=== PATIENT | female | born 1985 | race Two or more races ===

== ENCOUNTER 2017-04-04 05:30 | Emergency (ER) | payer SELFPAY ==
[2017-04-04] MEDS ORDERED: BUPIVACAINE HCL 0.5%-EPI 1:200000 INJ/PF 30 ML VIAL INJ ONE (08:15)
[2017-04-04] MEDS ORDERED: PENICILLIN V POTASSIUM 500 MG TABLET PO ONE (08:16)
--- NOTE | 2017-04-04 08:33 | ER Document Report ---
ED Oral Problem - General Chief Complaint: Toothache Stated Complaint: TOOTHACHE Time Seen by Provider: 04/04/17 07:26 Mode of Arrival: Ambulatory Information source: Patient Notes: Patient is a 31-year-old female who presents to the ER today for right upper tooth pain that began while eating last night. Patient states that she could not sleep last night due to the pain. She states she does have a dentist to follow-up with, however does not have insurance. TRAVEL OUTSIDE OF THE [place] IN LAST 30 DAYS: No - Related Data Allergies/Adverse Reactions: No Known Allergies Allergy (Verified 08/28/15 07:56) Past Medical History - Social History Smoking Status: Current Every Day Smoker Chew tobacco use (# tins/day): No Frequency of alcohol use: None Drug Abuse: None Family History: Reviewed & Not Pertinent Patient has suicidal ideation: No Patient has homicidal ideation: No - Past Medical History Cardiac Medical History: Denies: Hx Coronary Artery Disease, Hx Heart Attack, Hx Hypertension Pulmonary Medical History: Denies: Hx Asthma, Hx Bronchitis, Hx COPD, Hx Pneumonia Neurological Medical History: Denies: Hx Cerebrovascular Accident, Hx Seizures Renal/ Medical History: Denies: Hx Peritoneal Dialysis Musculoskeltal Medical History: Denies Hx Arthritis Past Surgical History: Reports: Hx Tubal Ligation - Immunizations Hx Diphtheria, Pertussis, Tetanus Vaccination: Yes Physical Exam - Vital signs Vitals: Temp Pulse Resp BP Pulse Ox 98.2 F 72 17 109/57 L 100 04/04/17 05:46 04/04/17 05:46 04/04/17 05:46 04/04/17 05:46 04/04/17 05:46 Course - Vital Signs Vital signs: Temp Pulse Resp BP Pulse Ox 98.2 F 60 16 98/47 L 99 04/04/17 05:46 04/04/17 09:20 04/04/17 09:20 04/04/17 09:20 04/04/17 09:20 Procedures - Additional Procedures dental block Time performed: 08:50 - bupivicaine and epi local block, pt tolerated well Discharge - Discharge Clinical Impression: Toothache Condition: Stable Disposition: HOME, SELF-CARE Instructions: Penicillin V K ([facility]) Additional Instructions: Return immediately for any new or worsening symptoms. Follow up with primary care provider, call tomorrow to make followup appointment. Prescriptions: Penicillin V Potassium [Penicillin Vk 500 mg Tablet] 500 mg PO BID #20 tablet
[2017-04-04 09:48] VITALS: BP 98/47
== END 2017-04-04 09:20 | disposition home or self-care (01) ==
LOC: ER 05:30
PROC: 3E0T3BZ Introduction of Anesthetic Agent into Peripheral Nerves and Plexi, Percutaneous Approach (ICD-10-PCS; principal; 2017-04-04)
DX: K08.89 Other specified disorders of teeth and supporting structures (principal); F17.200 Nicotine dependence, unspecified, uncomplicated
CPT/HCPCS: 99282; 64400; J3490

== ENCOUNTER 2018-03-27 09:37 | Emergency (ER) | payer SELFPAY ==
[2018-03-27 09:44] VITALS: BP 119/58
--- NOTE | 2018-03-27 09:59 | ER Document Report ---
ED General - General Chief Complaint: Abnormal Lab Results Stated Complaint: ABNORMAL LABS Time Seen by Provider: 03/27/18 09:49 Notes: 32-year-old female here with requests for outpatient blood work. 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 She went to her primary doctor and her protein was found to be normal. 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 Her only symptom is that she has lost a few pounds over the course of 2 years, ever since she gave to her child. No other symptoms. TRAVEL OUTSIDE OF THE [place] IN LAST 30 DAYS: No - Related Data Allergies/Adverse Reactions: No Known Allergies Allergy (Verified 08/28/15 07:56) Past Medical History - Social History Smoking Status: Current Every Day Smoker Chew tobacco use (# tins/day): No Frequency of alcohol use: None Drug Abuse: None Family History: Reviewed & Not Pertinent Patient has suicidal ideation: No Patient has homicidal ideation: No - Past Medical History Cardiac Medical History: Denies: Hx Coronary Artery Disease, Hx Heart Attack, Hx Hypertension Pulmonary Medical History: Denies: Hx Asthma, Hx Bronchitis, Hx COPD, Hx Pneumonia Neurological Medical History: Denies: Hx Cerebrovascular Accident, Hx Seizures Renal/ Medical History: Denies: Hx Peritoneal Dialysis Musculoskeletal Medical History: Denies Hx Arthritis Past Surgical History: Reports: Hx Tubal Ligation - Immunizations Hx Diphtheria, Pertussis, Tetanus Vaccination: Yes Review of Systems - Review of Systems Notes: See history of present illness for pertinent positive review of systems; otherwise all review of systems have been reviewed and are negative Physical Exam - Vital signs Vitals: Temp Pulse Resp BP Pulse Ox 98.6 F 79 16 119/58 L 98 03/27/18 09:42 03/27/18 09:42 03/27/18 09:42 03/27/18 09:42 03/27/18 09:42 - Notes Notes: PHYSICAL EXAMINATION: GENERAL: Well-appearing and in no acute distress. HEAD: Atraumatic, normocephalic. EYES: Pupils equal round and reactive to light, extraocular movements intact, sclera anicteric, conjunctiva are normal. ENT: nares patent, oropharynx clear without exudates. Moist mucous membranes. NECK: Normal range of motion, supple without lymphadenopathy LUNGS: CTAB and equal. No wheezes rales or rhonchi. HEART: Regular rate and rhythm without murmurs ABDOMEN: Soft, no tenderness. No facial grimacing/wincing upon palpation. No guarding, no rebound. EXTREMITIES: Normal range of motion, no pitting edema. No cyanosis. NEUROLOGICAL: Cranial nerves grossly intact. Normal sensory/motor exams. PSYCH: Normal mood, normal affect. SKIN: Warm, Dry, normal turgor, no rashes or lesions noted Course - Re-evaluation Re-evalutation: 03/27/18 09:58 MEDICAL DECISION MAKING: I have provided this patient with a medical screening exam She does not have any emergency medical condition today I have instructed her follow-up PCP, Dr. Levi, for her requested labs Patient understands and agrees to the plan of care - Vital Signs Vital signs: Temp Pulse Resp BP Pulse Ox 98.6 F 79 16 119/58 L 98 03/27/18 09:42 03/27/18 09:42 03/27/18 09:42 03/27/18 09:42 03/27/18 09:42 Discharge - Discharge Clinical Impression: Weight loss Condition: Good Disposition: HOME, SELF-CARE Additional Instructions: You were seen in the emergency department at [facility]. You may obtain the testing you have requested through your primary physician in an outpatient setting. Please followup with your primary physician in the next few days for further management/evaluation. Please return to the emergency department for any symptom that you deem to be concerning or life-threatening. Thank you for allowing us to be part of your care.
== END 2018-03-27 09:59 | disposition home or self-care (01) ==
LOC: ER 09:37
DX: R63.4 Abnormal weight loss (principal); Z68.1 Body mass index [BMI] 19.9 or less, adult; F17.200 Nicotine dependence, unspecified, uncomplicated
CPT/HCPCS: 99283